=== PATIENT | male | born 1965 | race Caucasian/White ===

== ENCOUNTER 2021-02-16 07:08 | Day surgery (SDC) | payer MEDICAID ==
[~2021-02-16] VITALS: Ht 170.2 cm; Wt 68.0 kg
[2021-02-16] MEDS ORDERED: FentaNYL CITRATE PF 100 MCG/2 ML VIAL ONE (07:33)
[2021-02-16] MEDS ORDERED: MIDAZOLAM HCL 2 MG/2 ML VIAL ONE (07:33)
[2021-02-16 08:13] LABS: GLUCOMETER DEV NAME(LOC) SDS.; GLUCOSE,POINT OF CARE 113 MG/DL (70-110)
[2021-02-16] MEDS ORDERED: SODIUM CHLORIDE 0.9% 1,000 ML ONE (09:21)
[2021-02-16] MEDS ORDERED: SODIUM CHLORIDE 0.9% 1,000 ML IV ONE (09:30)
[2021-02-16] MEDS ORDERED: LIDOCAINE 2% 30 ML JELLY TP ONE (12:00)
[2021-02-16] MEDS ORDERED: BENZOCAINE 20% 50 MCG/SPRAY 57 GM TP ONE (12:00)
[2021-02-16] MEDS ORDERED: ALBUTEROL SULFATE 2.5 MG/0.5 ML NEB SOLUTION NEB ONE (12:00)
[2021-02-16] MEDS ORDERED: LIDOCAINE 4% 50 ML SOLUTION TP ONE (12:00)
== END 2021-02-16 11:57 | disposition home or self-care (01) ==
LOC: SURGERY 07:08
PROVIDERS: ATTEND Internal Medicine Critical Care Medicine
DX: R05 Cough (principal); J34.89 Other specified disorders of nose and nasal sinuses; J98.8 Other specified respiratory disorders; J38.4 Edema of larynx; B37.0 Candidal stomatitis; I10 Essential (primary) hypertension; E11.9 Type 2 diabetes mellitus without complications; I48.91 Unspecified atrial fibrillation; N40.0 Benign prostatic hyperplasia without lower urinary tract symptoms; N17.9 Acute kidney failure, unspecified; Z79.899 Other long term (current) drug therapy; Z86.16 Personal history of COVID-19
CPT/HCPCS: 31623; 31624; 71045; 82962; 87015; 87070; 87101; 87205; 87206; 87220; 88184; 88185; J2250; J3010; J7030; J7613; Z7610